=== PATIENT | female | born 1980 ===

== ENCOUNTER 2018-05-13 01:20 | Emergency (ER) | payer SELFPAY ==
[2018-05-13 01:31] VITALS: O2SAT 99
--- NOTE | 2018-05-13 01:54 | C.PDOC ---
History Of Present Illness 37 year old female with a Hx of HTN presents to the ER with a complaint of a headache. Patient states she took her blood pressure at home and saw it was 145/ 103. She has not been taking her blood pressure medication in 6 months because she was told her pressure was controlled. Denies nausea, vomiting, change in vision, chest pain, or SOB. Time Seen by Provider: 05/13/18 01:34 Chief Complaint (Nursing): Headache History Per: Patient History/Exam Limitations: no limitations Onset/Duration Of Symptoms: Hrs Current Symptoms Are (Timing): Still Present Recent travel outside of the [place]: No Past Medical History Reviewed: Historical Data, Nursing Documentation, Vital Signs Vital Signs: Last Vital Signs Temp 98.2 F 05/13/18 02:05 Pulse 74 05/13/18 02:05 Resp 20 05/13/18 02:05 BP 145/80 05/13/18 02:05 Pulse Ox 99 05/13/18 02:14 - Medical History PMH: HTN Surgical History: No Surg Hx Family History: States: Unknown Family Hx - Social History Hx Alcohol Use: No Hx Substance Use: No - Immunization History Hx Tetanus Toxoid Vaccination: No Hx Influenza Vaccination: No Hx Pneumococcal Vaccination: No Review Of Systems Constitutional: Negative for: Fever, Chills Eyes: Negative for: Vision Change Cardiovascular: Negative for: Chest Pain, Palpitations Respiratory: Negative for: Cough, Shortness of Breath Gastrointestinal: Negative for: Nausea, Vomiting Neurological: Positive for: Headache Physical Exam - Physical Exam Appears: Non-toxic, No Acute Distress Skin: Normal Color, Warm, Dry Head: Atraumatic, Normacephalic Eye(s): bilateral: Normal Inspection, PERRL, EOMI Oral Mucosa: Moist Neck: Normal, Supple Chest: Symmetrical, No Tenderness Cardiovascular: Rhythm Regular Respiratory: Normal Breath Sounds, No Rales, No Rhonchi, No Wheezing Gastrointestinal/Abdominal: Soft, No Tenderness Extremity: Normal ROM (x4) Neurological/Psych: Oriented x3, Normal Speech ED Course And Treatment O2 Sat by Pulse Oximetry: 99 (Room air) Pulse Ox Interpretation: Normal Medical Decision Making Medical Decision Making: Patient is resting comfortably in the ER in no acute distress, blood pressure is within normal limits, will discharge home with Rx for blood pressure medication and instructions to follow up with PMD or return if symptoms worsen. Disposition Counseled Patient/Family Regarding: Diagnosis, Need For Followup, Rx Given - Disposition Disposition: HOME/ ROUTINE Disposition Time: 01:53 Condition: STABLE Additional Instructions: Please take HTN medication daily Follow up with your primary medical doctor or clinic in 2-5 days for further evaluation. Prescriptions: Atenolol/Chlorthalidone [Atenolol-Chlorthalidone 50-25] 1 each PO DAILY #15 tablet Instructions: DASH Diet, High Blood Pressure (DC) Forms: [employer] (Somali) - POA Present On Arrival: None - Clinical Impression Clinical Impression: HTN (hypertension), Headache - PA / CITY DESIGNER / Resident Statement MD/DO has reviewed & agrees with the documentation as recorded. - Scribe Statement The provider has reviewed the documentation as recorded by the Scribjon Robles All medical record entries made by the Ramonaibjon were at my direction and personally dictated by me. I have reviewed the chart and agree that the record accurately reflects my personal performance of the history, physical exam, medical decision making, and the department course for this patient. I have also personally directed, reviewed, and agree with the discharge instructions and disposition.
[2018-05-13 02:19] VITALS: BP 145/80; PULSE 74; RESP 20; TEMP 98.2
== END 2018-05-13 02:19 | disposition home or self-care (01) ==
LOC: C.ER 01:20
DX: I10 Essential (primary) hypertension (principal); R51 Headache